=== PATIENT | female | born 1960 | race Caucasian/White ===

== ENCOUNTER 2023-02-20 15:09 | Emergency (ER) | payer SELFPAY ==
[2023-02-20] VITALS (20 sets, daily range): BP systolic 91–152; BP diastolic 54–86; PULSE 61–111; RESP 12–122; TEMP 36.6; O2SAT 91–98; BMI 25.7
[2023-02-20] MEDS: EPINEPHrine 0.3 MG PEN IM (15:29)
[2023-02-20] MEDS: diphenhydrAMINE 50 MG/ML inj 25 MG IVP (15:36)
[2023-02-20] MEDS: METHYLPREDNISOLONE SOD SUCC 62.5 MG/ML (125) 125 MG IVP (15:36)
[2023-02-20] MEDS: FAMOTIDINE 10 MG/ML inj 20 MG IVP (15:53)
[2023-02-20] MEDS: ONDANSETRON 2 MG/ML inj 4 MG IVP (16:13)
--- NOTE | 2023-02-20 16:44 | ED_ITS ---
HPI - General Adult General Date Seen: 02/20/23 Chief complaint: Bug Bite Stated complaint: Bug bite, allergic reaction Time Seen by Provider: 02/20/23 15:22 History of Present Illness HPI narrative: History obtained through Haitian[place]Sammarinese exchange consultant/ipad This is a 63 year old female presenting to the ER today with concern for reaction to a insect sting. She was in her garden about 45 minutes prior to arrival when she was stung on the palmar surface of the ring finger of her right hand. She thinks the bug was yellowish and here it does not with red stripes. She is not sure what it was. Shortly after the sting she developed swelling, redness and pain affecting her entire right hand including the palmar surface on the dorsum. Since then she has also developed itchy hives on her abdomen, back, neck and face, as well as a scratchy feeling in her throat. To her voice feels slightly hoarse. She is not having any trouble breathing. No nausea or vomiting or abdominal pain. No chest pain. She does not have any heart history of heart disease or high blood pressure. She does have high cholesterol. She has diabetes. No history of asthma. No other history of allergic reactions. Related Data Home Medications Medication Instructions Recorded Confirmed atorvastatin 80 mg tablet 80 mg PO QPM 02/20/23 02/20/23 glipizide 5 mg tablet 5 mg PO BID 02/20/23 02/20/23 metformin 500 mg tablet mg PO 02/20/23 Previous Rx's Medication Instructions Recorded diphenhydramine HCl 25 mg capsule 25 mg PO TID PRN #10 caps 02/20/23 (Benadryl) epinephrine 0.3 mg/0.3 mL 0.3 mg (0.3 mL) IM Q4H PRN #2 ea 02/20/23 injection, auto-injector (EpiPen 2-Arslan) prednisone 20 mg tablet 60 mg (3 x 20 mg) PO DAILY 2 days 02/20/23 #6 tabs Allergies Allergy/AdvReac Type Severity Reaction Status Date / Time No Known Drug Allergies Allergy Verified 02/20/23 15:20 PFS PFS Social History Smoking Status: Former smoker Non-prescribed substance use: denies use Exam Narrative: Exam Narrative: Constitutional: Appears well-developed and well-nourished. Alert. Conversant through the iPad [place]ian[place]ammar[place] exchange consultant. Breathing easily. Oxygen high 90s on room air. Speaking full sentences. Voice is slightly scratchy, and this is apparently different than her baseline. HENT: Head: Atraumatic. Nose: Nose normal. Mouth/Throat: Oral mucosa is clear and moist. no trismus. Pharynx normal. Tonsils symmetric. No tonsillar enlargement, erythema, or exudate. I do not see any swelling of her lip, tongue or pharynx. She has hives affecting her face, more on the right than on the left as well as her neck. Eyes: Conjunctivae normal. EOM normal. Pupils equal, round, and reactive to light. No scleral icterus. Neck: Normal range of motion. Neck supple. No tracheal deviation present. Cardiovascular: Normal rate, regular rhythm. No gallop. No friction rub. No murmur heard. Symmetric radial artery pulses Pulmonary/Chest: Effort normal. No stridor. No respiratory distress. No wheezes. No rales. No rhonchi . No tenderness. Abdominal: Soft. Bowel sounds normal. No distension. No mass. No tenderness. No rebound. No guarding. Musculoskeletal: RUE: Normal range of motion. No tenderness. No deformity LUE: Normal range of motion. No tenderness. No deformity RLE: Normal range of motion. No edema. No tenderness. No deformity LLE: Normal range of motion. No edema. No tenderness. No deformity Lymph: No cervical adenopathy. Neurological: Alert and oriented to person, place, and time. Normal strength. CN II-VII intact. No sensory deficit. GCS eye subscore is 4. GCS verbal subscore is 5. GCS motor subscore is 6. Normal coordination Skin: She has erythema and swelling of her right hand. In particular the ring finger is more swollen the rest. There is no visible or palpable a stinger still present. She also has hives spreading up the right arm. She has hives on her lower and upper back and hives on her abdomen. Lower extremities and left upper extremity unaffected. Remainder of skin is warm and dry. No pallor. Normal capillary refill. Psychiatric: Normal mood. Normal affect. Const: Vital Signs, click to edit/add: Vital Signs - 24 hr 02/20/23 15:13 02/20/23 15:38 02/20/23 15:41 Temperature 98 F Pulse Rate 97 90 Pulse Rate [Pulse Oximeter] 111 H Respiratory Rate 18 14 12 Blood Pressure 124/77 126/71 Blood Pressure [Ri ght Upper Arm] 116/75 Pulse Oximetry 95 96 94 Oxygen Delivery Me thod Room Air 02/20/23 15:46 02/20/23 15:56 02/20/23 16:01 Temperature Pulse Rate 61 63 65 Pulse Rate [Pulse Oximeter] Respiratory Rate 14 14 14 Blood Pressure 91/57 L 99/58 L 101/54 L Blood Pressure [Ri ght Upper Arm] Pulse Oximetry 94 95 94 Oxygen Delivery Me thod 02/20/23 16:16 02/20/23 16:21 02/20/23 16:31 Temperature Pulse Rate 79 82 86 Pulse Rate [Pulse Oximeter] Respiratory Rate 12 Blood Pressure 103/60 108/58 L 115/63 Blood Pressure [Ri ght Upper Arm] Pulse Oximetry 92 91 93 Oxygen Delivery Me thod 02/20/23 16:41 02/20/23 16:46 02/20/23 16:51 Temperature Pulse Rate 96 94 96 Pulse Rate [Pulse Oximeter] Respiratory Rate 14 122 H Blood Pressure 133/62 106/70 120/86 Blood Pressure [Ri ght Upper Arm] Pulse Oximetry 94 94 96 Oxygen Delivery Me thod Room Air 02/20/23 17:01 02/20/23 17:31 02/20/23 17:51 Temperature Pulse Rate 88 89 99 Pulse Rate [Pulse Oximeter] Respiratory Rate 14 14 12 Blood Pressure 111/54 L 117/54 L 152/81 H Blood Pressure [Ri ght Upper Arm] Pulse Oximetry 93 95 96 Oxygen Delivery Me thod Course Reevaluation(s) Reevaluation #1: Recheck-Hives slightly less prominent on her back. Airway stable. Blood pressure is actually down to normal. No hypotension. Feeling mildly nauseous. Zofran ordered. No chest pain. No shortness of breath. Will obtain EKG to make sure nausea is related to her anaphylaxis and not a symptom of ACS triggered by the epi. EKG shows nonspecific changes but no definite ischemia. No ST segment elevation. Time of Reevaluation #2: 16:48 Reevaluation #2: Doing much better. Hives almost completely resolved. Swelling and hand is much improved. Throat feels better. Vital signs stable. Oxygen normal. Doing well. Will monitor for a couple more hours. Discussed with patient and family. They agree. Vital Signs Vital signs: Initial Vital Signs Temperature 98 F 02/20/23 15:13 Temperature Source Temporal Artery Scan 02/20/23 15:13 Pulse Rate 111 H 02/20/23 15:13 Respiratory Rate 18 02/20/23 15:13 Blood Pressure 116/75 02/20/23 15:13 Blood Pressure Mean 88 02/20/23 15:13 Blood Pressure Position Supine 02/20/23 15:13 Pulse Oximetry 95 02/20/23 15:13 Oxygen Delivery Method Room Air 02/20/23 15:13 Vital Signs Temperature 98 F 02/20/23 15:13 Pulse Rate 111 H 02/20/23 15:13 Respiratory Rate 18 02/20/23 15:13 Blood Pressure 116/75 02/20/23 15:13 Pulse Oximetry 95 02/20/23 15:13 Oxygen Delivery Method Room Air 02/20/23 15:13 Temperature 98 F 02/20/23 15:13 Pulse Rate 80 02/20/23 19:06 Respiratory Rate 18 02/20/23 19:06 Blood Pressure 130/86 02/20/23 19:06 Pulse Oximetry 98 02/20/23 19:06 Oxygen Delivery Method Room Air 02/20/23 16:46 Medical Decision Making MDM Narrative Medical decision making narrative: This patient presents for evaluation of swelling of her right hand, hives, swelling of her face, and subtle voice changes that began after an insect sting this afternoon.. Signs and symptoms are consistent with allergic reaction. No airway involvement, bronchospasm, GI symptoms, hypotension, or other sign of anaphylaxis. Patient was treated here with medications as noted above. Symptoms improved after meds. Will send home with epipen, steroids, antihistamines. Potential for rebound reaction was discussed. Return of anaphylactic symptoms were discussed with patient and they were instructed to inject epi-pen and call 911 should these symptoms occur. EKG shows nonspecific changes but no clear isc hemia. She is not having any chest pain or shortness of breath. Given the rapidity of resolution, lack of serious systemic symptoms, lack of respiratory difficulty and no oral or pharyngeal swelling, would not admit at this time for anaphylaxis. There is no signs of anaphylactic shock. ECG Data Attestation: I personally reviewed and interpreted this ECG as follows: Interpretation: Normal sinus rhythm . Rate 92 GA 140 QRS axis normal axis. No pathologic Q-waves. ST segment/T wave: Nonspecific changes in lead 2, lead 3, AVF, V4, V5, V6. No ST segment elevation or depression. QTc: 462 Discharge Plan Discharge Clinical Impression: Allergic reaction Patient Disposition: Home, Self-Care Instructions: General Allergic Reaction (ED) Additional Instructions: Please come back to the ER right away if you have worsening hives, trouble breathing, nausea and vomiting, lightheadedness, or any other concerns. Por favor regrese a la nan de emergencia de imediato si mignon simtomas regresen: hinchazon de josette o garganta, dificultad de respirar, nausea y vomito, mareos, o enrojecimiento. Sepideh Difenhidramina (Benadryl) jayde tableta cuando te acuestes hoy y hasta richie veces al riky si necesita para simptomas leves. Sepideh Prednisona 3 tabletas (60mg en total) diario hasta que se terminan. Si necesita, puede usar el Epi-Pen para simptomas de hichazon de la garganta y josette y dificultad de respirar. El Epi Pen es jayde injeccion y se da solo en el musculo andrés de la pierna. Si tienes que usar el Epi Pen, es necesario ir a la nan de emergencia de imediato. Prescriptions: New epinephrine [EpiPen 2-Arslan] 0.3 mg/0.3 mL auto-injector 0.3 mg IM Q4H PRNQty: 2 0RF prednisone 20 mg tablet 60 mg PO DAILY 2 Days Qty: 6 0RF diphenhydramine HCl [Benadryl] 25 mg capsule 25 mg PO TID PRNQty: 10 0RF No Action metformin 500 mg tablet PO atorvastatin 80 mg tablet 80 mg PO QPM glipizide 5 mg tablet 5 mg PO BID Follow Up/Referrals: Provider,Not a Local [Primary Care Provider] - [facility]
--- NOTE | 2023-02-20 18:59 | ED.NURSE ---
at bedside with iPad casing man.
--- NOTE | 2023-02-20 19:32 | ED.NURSE ---
Hives/rash resolved. VSS. Pt reports significant improvement of symptoms. Swelling markedly improved. Extensive education on Epi-Pen provided. Pt aware of Rx, sent electronically to pharmacy.
== END 2023-02-20 19:30 | disposition home or self-care (01) ==
PROVIDERS: Emergency Provider Emergency Medicine
DX: S60.464A Insect bite (nonvenomous) of right ring finger, initial encounter (principal); T63.481A Toxic effect of venom of other arthropod, accidental (unintentional), initial encounter; L50.9 Urticaria, unspecified
CPT/HCPCS: 93005; 99283; 99284; J0171; J1200; J2405; J2930; S0028